=== PATIENT | male | born 1975 | race Caucasian/White ===

== ENCOUNTER → 2016-12-19 | Outpatient (CLI) | payer BC ==
[2016-12-19 13:45] LABS: CHOLESTEROL/HDL RATIO 6.5
== END | disposition home or self-care (01) ==
LOC: C.LABBC 10:24
PROVIDERS: ATTEND Family Medicine
DX: Z00.00 Encounter for general adult medical examination without abnormal findings (principal)

== ENCOUNTER → 2017-12-17 | Outpatient (CLI) | payer BC ==
[2017-12-17 14:18] LABS: ALBUMIN 4.2 gm/dl (3.4-5.0); ALT/SGPT 36 U/L (12-78); BLOOD UREA NITROGEN 13 mg/dl (7-18); CALCIUM 8.9 mg/dl (8.5-10.1); CARBON DIOXIDE 27 mmol/L (21-32); CHOLESTEROL 241 mg/dl (0-200); CREATININE 0.99 mg/dl (0.60-1.40); GLUCOSE 93 mg/dl (70-99); POTASSIUM 3.6 mmol/L (3.5-5.1); SODIUM 140 mmol/L (136-145)
[2017-12-17 14:21] LABS: ALKALINE PHOSPHATASE 73 U/L (45-117); AST/SGOT 12 U/L (15-37); LDL CHOLESTEROL CALCULATED 166 mg/dl
== END | disposition home or self-care (01) ==
LOC: C.LABBC 11:12
PROVIDERS: ATTEND Family Medicine Adult Medicine
DX: Z00.00 Encounter for general adult medical examination without abnormal findings (principal); E78.00 Pure hypercholesterolemia, unspecified; M10.9 Gout, unspecified

== ENCOUNTER 2019-04-15 08:24 | Observation (INO) ==
[2019-04-15 08:57] LABS: Basophils # (auto) 0.01 K/uL (0-0.2); Basophils % (auto) 0.1 %; Eosinophils # (auto) 0.09 K/uL (0-0.5); Eosinophils % (auto) 1.2 %; Hematocrit (blood only) 41.1 % (42-52); Hemoglobin 14.4 g/dL (14.0-18.0); Immature Granulocytes # (auto) 0.03 K/uL (0.00-0.02); Immature Granulocytes % (auto) 0.4 %; Lymphocytes # (auto) 2.83 K/uL (1.2-3.4); Lymphocytes % (auto) 37.1 %; Mean Corpuscular Volume 91.1 fL (80-100); Mean Platelet Volume 8.9 fL (7.4-10.4); Monocytes # (auto) 0.51 K/uL (0.11-0.59); Monocytes % (auto) 6.7 %; Neutrophils # (auto) 4.16 K/uL (1.4-6.5); Neutrophils % (auto) 54.5 %; Platelet Count 167 K/uL (130-400); RDW Coefficient of Variation 12.5 % (11.5-14.5); RDW Standard Deviation 41.4 fL (36.4-46.3); Red Blood Count 4.51 M/uL (4.7-6.1); White Blood Count 7.63 K/uL (4.8-10.8)
[2019-04-15] MEDS ORDERED: MIDAZOLAM HCL 1 MG/ML 2ML VIAL ONE ×3 (08:58→10:29)
[2019-04-15] MEDS ORDERED: fentaNYL citrate 100 MCG/2 ML VIAL ONE (08:58)
[2019-04-15] MEDS ORDERED: HEPARIN (PORCINE) 1000 UNIT/ML 10 ML (CATH LAB USE ONLY) ONE ×2 (08:58→10:34)
[2019-04-15] MEDS ORDERED: NiCARDipine HCL INJ 2.5 MG/ML 10 ML AMP ONE (08:58)
[2019-04-15] MEDS ORDERED: NITROGLYCERIN/D5W 100MCG/ML 20ML SYR ONE (08:59)
--- NOTE | 2019-04-15 09:09 | History & Physical Bridge Note ---
Date of Service April 15, 2019 History & Physical Bridge Note I have examined the patient, reviewed the History & Physical and in the interval since the performance of the History & Physical I have noted the following changes of clinical significance: no changes noted
--- NOTE | 2019-04-15 09:11 | Pre Anesthesia Assessment ---
Date of Service April 15, 2019 Pre Sedation Assessment Vital Signs Temp Pulse Resp BP Pulse Ox 04/15/19 08:35 36.6 C 104 H 20 143/88 H 98 Cardiovascular RRR, no murmur, no edema Respiratory normal respiratory effort, lungs clear to auscultation Pre-Sedation Airway Assessment Smoking Status: Never smoker ASA: ASA2 Procedure Planning Contraindications for Sedation: none Current Medications Reviewed: Yes Notes The planned sedation has been discussed with the patient. Informed Consent was obtained. I have identified the patient, determined the appropriateness of sedation and have assessed the patient immediately prior to the procedure. All medicine(s) and interventions are by my order.
[2019-04-15 09:15] LABS: BUN Creatinine Ratio 12.6 (10-20); Calcium 9.5 mg/dl (8.5-10.1); Creatinine Clr Calc Pharmacy 97.5 ml/min; Est GFR (African American) 95.1; Potassium 3.8 mmol/L (3.5-5.1)
--- NOTE | 2019-04-15 10:00 | Post Anesthesia Assessment ---
Date of Service April 15, 2019 Post Sedation Assessment Vital Signs Temp Pulse Resp BP Pulse Ox 04/15/19 08:35 36.6 C 104 H 20 143/88 H 98 Recovery Score Activity: Moves 4 extremities Respiration: Deep Breath/Cough Circulation: +/-20% PreAnes Value Consciousness: Fully Awake Oxygen Saturation: > 92% On Room Air Post Sedation Plan On clinical assessment, the patient appears to have tolerated the sedation without complications. Patient is recovering as anticipated. Patient will continue to be monitored by nursing and may be discharged when sedation discharge criteria are met per below protocol. Upon Completions of procedure and additional 15 minutes continue every 5 minute vital signs and the P.A.R. score; then discharge to a Phase I or Fast Track to Phase II per the following guidelines: * Discharge Patient to appropriate Phase II area if PAR is 8 or greater or return to pre- procedure baseline. The post - procedure orders will be as directed. * If PAR score is less than 8 or not return to pre-procedure baseline then patient will follow Phase I monitoring till PAR is reached for Phase II. The Phase I may be done in procedure room or may call to secure a Phase I area. * If naloxone or flumazenil are used for reversal, hold in Phase I for co ntinued monitoring from when last reversal dose was given for a minimum of 60 minutes or longer pending the nurse and/or physician discretion of patient condition before discharge to Phase II. Please call the Sedation Physician to re-evaluate and complete post-note for discharge to Phase II area. Do NOT discharge from procedure sedation or Phase 1 until post- sedation evaluation note is complete by procedure /sedation MD Sedation Discharge Instructions to be given to the patient at discharge to home.
--- NOTE | 2019-04-15 10:11 | Cardiac Catheterization ---
Cardiac Cath Procedure Full Procedure Date April 15, 2019 Pre-Procedure Diagnosis Pre-Procedure Diagnosis: Angina and Positive Stress Test AUC Score AUC Score: 7 Post-Procedure Diagnosis Post-Procedure Diagnosis: Severe CAD Procedure(s) Performed Procedure(s) Performed: Coronary Angiography and Left Heart Cath Grommet Worker Van Hurt DO Inside [employer] Sales(s) Theresa RTR Estimated Blood Loss Estimated Blood Loss: 5cc Medication(s) Medication(s): Fentanyl, Heparin, Lidocaine 1%, Nicardipine and Versed Summary of Findings 80% proximal LAD 90% proximal OM2 Hemodynamics Rest Ao:: 113/70/90 Final Ao: 102/63/81 LV: 107/-4/-1 Recommendations Recommendations: PCI without planned CABG Specimens Specimens: None Radiation Exposure (mGy) 843 Contrast (mls) 55 Fluids (cc crystalloids) Fluids (cc crystalloids): 305Nss Anesthesia Moderate sedation. start 0921. End 0945. 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 Cardiac Status Clinical evaluation leading to the procedure CAD Presenation: Positive Stress Test and Unstable angina Anginal Classification: CCS III Heart Failure: No Cardiogenic Shock within 24 Hours: No Cardiac Arrest within 24 Hours: No Imaging Studies Past 6 Months: Yes Stress Studies Past 6 Months: Yes Stress Echocardiogram: Yes - Positive and Risk/Extent of Ischemia (High) Coronary Anatomy Dominant: Right Left Main (% Stenosis): Normal LAD (% Stenosis): Proximal (80%), Mid (30%) and Distal (20%) Circumflex (% Stenosis): Ostial (10%), Proximal (20%) and Distal (30%) OM1 (% Stenosis): Ostial (small vessel with 40-50%) OM2 (% Stenosis): Proximal (90%), Mid (30%) and Distal (diffuse 10-20%) L PL1 (% Stenosis): Proximal (10%) L PL2 (% Stenosis): Proximal (10%) and Mid (10%) RCA (% Stenosis): Distal (40%) R PDA (% Stenosis): Proximal (20%) and Mid (20%) R PL1 (% Stenosis): Distal (10%) Ramus (% Stenosis): Mid (Vessel bifurcates approximately, 40% stenosis involving the lateral limb 40%) Diagnostic Physicians Name: Van O Kopinski, DO Status: Elective Closure Device Percutaneous Entry Location: Radial Recommendations: PCI without planned CABG Intraprocedure Events Significant Disection: No Perforation: No
--- NOTE | 2019-04-15 11:12 | Post Anesthesia Assessment ---
Date of Service April 15, 2019 Post Sedation Assessment Vital Signs Temp Pulse Resp BP Pulse Ox 04/15/19 08:35 36.6 C 104 H 20 143/88 H 98 Recovery Score Activity: Moves 4 extremities Respiration: Deep Breath/Cough Circulation: +/-20% PreAnes Value Consciousness: Fully Awake Oxygen Saturation: > 92% On Room Air Discharge Sedation Level of Care: Fast Track Phase II Post Sedation Plan On clinical assessment, the patient appears to have tolerated the sedation without complications. Patient is recovering as anticipated. Patient will continue to be monitored by nursing and may be discharged when sedation discharge criteria are met per below protocol. Upon Completions of procedure and additional 15 minutes continue every 5 minute vital signs and the P.A.R. score; then discharge to a Phase I or Fast Track to Phase II per the following guidelines: * Discharge Patient to appropriate Phase II area if PAR is 8 or greater or return to pre- procedure baseline. The post - procedure orders will be as directed. * If PAR score is less than 8 or not return to pre-procedure baseline then patient will follow Phase I monitoring till PAR is reached for Phase II. The Phase I may be done in procedure room or may call to secure a Phase I area. * If naloxone or flumazenil are used for reversal, hold in Phase I for continued monitoring from when last reversal dose was given for a minimum of 60 minutes or longer pending the nurse and/or physician discretion of patient condition before discharge to Phase II. Please call the Sedation Physician to re-evaluate and complete post-note for discharge to Phase II area. Do NOT discharge from procedure sedation or Phase 1 until post- sedation evaluation note is complete by procedure /sedation MD Sedation Discharge Instructions to be given to the patient at discharge to home.
[2019-04-15] MEDS ORDERED: CLOPIDOGREL BISULFATE 300 MG TAB ONE (11:15)
[2019-04-15] MEDS ORDERED: ONDANSETRON INJ 2 MG/ML 2 ML VIAL IV PRN (11:18)
[2019-04-15] MEDS ORDERED: ACETAMINOPHEN 325 MG TAB PO PRN (11:18)
--- NOTE | 2019-04-15 11:18 | Cardiac Catheterization ---
Cardiac Cath Procedure Full Procedure Date April 15, 2019 Pre-Procedure Diagnosis Pre-Procedure Diagnosis: Angina and Positive Stress Test AUC Score AUC Score: 7 Post-Procedure Diagnosis Post-Procedure Diagnosis: Severe CAD and Successful PCI Procedure(s) Performed Procedure(s) Performed: Coronary Angiography, Drug Eluting Stent and IVUS Office Mail Clerk Kashif Mendez MD Pickle Solution Maker(s) Theresa RTR Estimated Blood Loss Estimated Blood Loss: 20 Medication(s) Medication(s): Clopidogrel, Fentanyl, Heparin, Nicardipine, Nitroglycerin and Versed Summary of Findings Indication: Abnormal stress test, exertional angina Access: 6 Fr right radial artery Catheters: EBU 3.5 guide Findings: For full details of patient's coronary angiography please cath report dictated by Dr. Hurt. Briefly, patient found to have multi-vessel disease including a 80 to 90% proximal LAD and 90 % stenosis involving the proximal aspect of large second OM. Decision to proceed with PCI. -- PCI -- Antithrombotic therapy: Heparin, clopidogrel Procedure: Left main cannulated with EBU 3.5 guide BMW wire passed across lesion into distal LAD Proximal LAD lesion predilated with 2.0 compliant balloon IVUS used to assess extent of disease, calcification, length of stenosis. Found to have moderately calcified stenosis extending almost to ostium. Dilated lesion stented with 3.0 x 22 mm [place] Stent post-dilated with 3.0 noncompliant balloon IC vasodilators administered for spasm Post procedure IVUS showed well-expanded stent with no apparent edge complications. Post procedure CARRIE 3 flow, stent well expanded with minimal residual stenosis and no apparent cardiac complications. BMW wire directed into OM 2 Proximal OM 2 lesion dilated with 2.0 balloon Dilated OM 2 lesion stented with 2.75 x 22 mm [place] MARY Stent postdilated with stent balloon MARY revealed well-expanded stent just up to branch point with distal circumflex. Arterial Closure: TR band Summary: 1. Successful PCI of proximal LAD with single drug-eluting stent (3.0 x 22 [place]). 2. Successful PCI of proximal OM 2 with single drug-eluting stent (2.75 x 22 [place]). 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 Cardiac Status Clinical evaluation leading to the procedure CAD Presenation: Positive Stress Test Anginal Classification: CCS III Heart Failure: No Cardiogenic Shock within 24 Hours: No Cardiac Arrest within 24 Hours: No Imaging Studies Past 6 Months: Yes Stress Studies Past 6 Months: Yes Stress Echocardiogram: Yes - Positive Diagnostic Physicians Name: Kashif Mendez MD Status: Elective Closure Device Percutaneous Entry Location: Radial Closure Device: Radial Band Recommendations: PCI without planned CABG PCI Indication: + Stress Test Lesion Segment Name: Proximal LAD Culprit Artery: Yes Stenosis Prior to Rx (%): 80-90 Chronic Total Occlusion: No IVUS: Yes FFR: No Pre-Procedure CARRIE Flow: 3 Previously Treated Lesion: No Lesion Complexity: Non-High/Non-C Lesion Length (mm): 18 Thrombus Present: No Bifurcation Lesion: No Guidewire Across Lesion: Stenosis Post-Procedure (%): 0 Post-Procedure CARRIE Flow: 3 Devices(s) Deployed: Yes Yes Lesion #2 Segment Name: Proximal OM 2 Culprit Artery: No Stenosis Prior to Rx (%): 90 Chronic Total Occlusion: No IVUS: Yes FFR: No Pre-Procedure CARRIE Flow: 3 Previously Treated Lesion: No Lesion Complexity: Non-High/Non-C Lesion Length (mm): 18 Thrombus Present: No Bifurcation Lesion: Yes Guidewire Across Lesion: Yes Stenosis Post-Procedure (%): 0 Post-Procedure CARRIE Flow: 3 Intraprocedure Events Significant Disection: No Perforation: No
[2019-04-15] MEDS ORDERED: SODIUM CHLORIDE 0.9% 1000ML 1,000 ML IV SCH (11:30)
[2019-04-15] MEDS: ATORVASTATIN 40 MG TAB PO SCH (12:07)
[2019-04-15] MEDS: METOPROLOL SUCC 25MG EXT REL TAB PO SCH (12:08)
[2019-04-16 06:43] LABS: Basophils # (auto) 0.02 K/uL (0-0.2); Basophils % (auto) 0.2 %; Eosinophils # (auto) 0.12 K/uL (0-0.5); Eosinophils % (auto) 1.4 %; Hematocrit (blood only) 39.7 % (42-52); Immature Granulocytes # (auto) 0.04 K/uL (0.00-0.02); Immature Granulocytes % (auto) 0.5 %; Lymphocytes % (auto) 31.9 %; Mean Corpuscular Hgb Conc 35.3 g/dL (32-36); Mean Corpuscular Volume 91.7 fL (80-100); Mean Platelet Volume 8.7 fL (7.4-10.4); Monocytes # (auto) 0.63 K/uL (0.11-0.59); Monocytes % (auto) 7.2 %; Neutrophils # (auto) 5.18 K/uL (1.4-6.5); Neutrophils % (auto) 58.8 %; Platelet Count 168 K/uL (130-400); RDW Coefficient of Variation 12.4 % (11.5-14.5); RDW Standard Deviation 42.1 fL (36.4-46.3); Red Blood Count 4.33 M/uL (4.7-6.1); White Blood Count 8.79 K/uL (4.8-10.8)
[2019-04-16] MEDS ORDERED: ASPIRIN 81 MG ECTAB PO SCH (09:00)
[2019-04-16] MEDS ORDERED: CLOPIDOGREL BISULFATE 75 MG TAB PO SCH (09:00)
[2019-04-16] MEDS: METOPROLOL SUCC 25MG EXT REL TAB PO SCH (09:05)
[2019-04-16] MEDS: ATORVASTATIN 40 MG TAB PO SCH (09:05)
--- NOTE | 2019-04-16 11:00 | Cardiology Progress Note ---
Date of Service April 16, 2019 Assessment & Plan (1) CAD (coronary artery disease): Abnormal stress test, leading to diagnostic cardiac cath yesterday, 04/15. receiving 2 MARY within prox LAD x1 and prox OM2x1 tolerated procedure without incident No recurrent chest pain (2) S/P coronary artery stent placement: Summary: 1. Successful PCI of proximal LAD with single drug-eluting stent (3.0 x 22 [place]). 2. Successful PCI of proximal OM 2 with single drug-eluting stent (2.75 x 22 [place]). Recommendations: Continue dual-antiplatelet therapy for at least 6 months Continue statin, and ASCVD risk factor modification cardiac Rehab ASA, Plavix, atorvastatin and metoprolol on discharge (3) Dyslipidemia, goal LDL below 70: Start atorvastatin (4) Hypertension: Start Metoprolol Subjective Patient without complaints this. AM. No chest pain overnight or this AM while ambulating in [place]. Denies SOB. Cath site without pain, erythema, drainage. No dizziness or palpitations Review of Systems Review of Systems: All systems reviewed & are unremarkable except as noted in HPI & below Physical Exam Physical Exam: General: NAD. A+Ox3. HEENT: Normocephalic. Atraumatic. PERRL. EOMI. Conjunctiva and sclera clear. NECK: No carotid bruits. No JVD. Carotid upstrokes are brisk. Heart: RRR. S1 and S2 noted without murmur, rubs, gallops. PMI non displaced. Lungs: Clear to auscultation and percussion. No wheezes, rhonchi, rales. Abdomen: Normal bowel sounds. Soft. Nontender. No masses or organomegaly. No abdominal bruits. Extremities: No edema. No clubbing or cyanosis. Pulses: radi al=2/4, posterior tibial=2/4, dorsalis pedis = 2/4. NEURO: No focal deficits. PSYCH: Normal. Results & Data Vital Signs (Past 12 Hours) Vital Signs Temp Pulse Pulse Pulse Resp BP Pulse Ox 04/16/19 08:00 76 04/16/19 07:21 36.6 C 72 16 123/85 98 04/16/19 03:33 36.7 C 70 20 136/83 97 04/15/19 23:43 36.8 C 78 20 134/75 96 Laboratory Results 04/16/19 04/15/1904/15/19 Range/Units 06:18 10:47 10:30 WBC 8.79 (4.8-10.8) K/uL RBC 4.33 L (4.7-6.1) M/uL Hgb 14.0 (14.0-18.0) g/dL Hct 39.7 L (42-52) % MCV 91.7 (80-100) fL MCH 32.3 (25-34) pg MCHC 35.3 (32-36) g/dL RDW Std Deviation 42.1 (36.4-46.3) fL RDW Coeff of Terrance 12.4 (11.5-14.5) % Plt Count 168 (130-400) K/uL MPV 8.7 (7.4-10.4) fL Immature Gran % (Auto) 0.5 % Neut % (Auto) 58.8 % Lymph % (Auto) 31.9 % [place] % (Auto) 7.2 % Eos % (Auto) 1.4 % Baso % (Auto) 0.2 % Immature Gran # (Auto) 0.04 H (0.00-0.02) K/uL Neut # (Auto) 5.18 (1.4-6.5) K/uL Lymph # (Auto) 2.80 (1.2-3.4) K/uL [place] # (Auto) 0.63 H (0.11-0.59) K/uL Eos # (Auto) 0.12 (0-0.5) K/uL Baso # (Auto) 0.02 (0-0.2) K/uL Activ Coag Time Ka[place] 241 H 208 H (94-140) SECONDS Diagnostic Findings Cardiac Cath report reviewed: Summary: 1. Successful PCI of proximal LAD with single drug-eluting stent (3.0 x 22 [place]). 2. Successful PCI of proximal OM 2 with single drug-eluting stent (2.75 x 22 [place]). (1) CAD (coronary artery disease) Coronary Disease-Associated Artery/Lesion type: [place] artery [place] vs. transplanted heart: [place] heart Associated angina: with other forms of angina Qualified Code(s): I25.118 - Atherosclerotic heart disease of [place] coronary artery with other forms of angina pectoris (2) Hypertension Hypertension type: essential hypertension Qualified Code(s): I10 - Essential (primary) hypertension
--- NOTE | 2019-04-16 11:25 | Discharge Summary ---
Date of Service April 16, 2019 Admission HPI Per Admitting Provider Patient admitted with angina, positive stress test. Underwent diagnostic cardiac cath, demonstrating multivessel disease. Underwent MARY placement, prox LAD x2, prox OM2. Principal Diagnosis CAD s/p coronary artery stent placement Discharge Exam General: NAD. A+Ox3. HEENT: Normocephalic. Atraumatic. PERRL. EOMI. Conjunctiva and sclera clear. NECK: No carotid bruits. No JVD. Carotid upstrokes are brisk. Heart: RRR. S1 and S2 noted without murmur, rubs, gallops. PMI non displaced. Lungs: Clear to auscultation and percussion. No wheezes, rhonchi, rales. Abdomen: Normal bowel sounds. Soft. Nontender. No masses or organomegaly. No abdominal bruits. Extremities: No edema. No clubbing or cyanosis. Pulses: radial=2/4, posterior tibial=2/4, dorsalis pedis = 2/4. NEURO: No focal deficits. PSYCH: Normal. Discharge Data Allergies Allergy/AdvReac Type Severity Reaction Status Date / Time No Known Allergies Allergy Verified 12/09/02 19:37 Procedures Performed Operation Date: 04/15/19 09:30 Actual Procedures p Cath, Left with Cors and Vent - Van Hurt, DO s IVUS Coronary each ADDL Vessel - Segun Mendez MD s IVUS Coronary Single Vessel - Segun Mendez MD s Drug Eluting Stent each ADDTL Vessel - Segun Mendez MD s Drug Eluting Stent SGl Vessel - Segun Mendez MD Ordered Studies 04/15/19 06:43 CL Cath Imgs for PACS use only Routine 04/15/19 12:46 CL IVUS Coronary Single Vessel Routine Hospital Course (1) CAD (coronary artery disease): Abnormal stress test, leading to diagnostic cardiac cath yesterday, 04/15. receiving 2 MARY within prox LAD x1 and prox OM2x1 tolerated procedure without incident No recurrent chest pain (2) S/P coronary artery stent placement: Summary: 1. Successful PCI of proximal LAD with single drug-eluting stent (3.0 x 22 [place]). 2. Successful PCI of proximal OM 2 with single drug-eluting stent (2.75 x 22 [place]). Recommendations: Continue dual-antiplatelet therapy for at least 6 months Continue statin, and ASCVD risk factor modification cardiac Rehab ASA, Plavix, atorvastatin and metoprolol on discharge (3) Dyslipidemia, goal LDL below 70: Start atorvastatin (4) Hypertension: Start Metoprolol Total Time Total Time Spent Total Time Spent (In Minutes): 45 Total Time Includes: Examination of the Patient, Discharge Planning and Medication Reconciliation Discharge Plan Discharge Items Patient Disposition: Home - Self-Care Reason For Visit: Abnormal Stress Test Discharge Diagnosis: Coronary artery disease s/p MARY x2 Condition: Good Discharge Goals: Improve disease control, Learn about illness and Prevent disease Activity: Per 'Additional Instructions' section Lifting: No more than 10 pounds Lifting Comment: For 1 week Bathing: No limitations Sexual Activity: When tolerated Exercise/Sports: Gradually increase as tolerated Driving/Machine Use: No limitations Non-emergency contact: Coat Operator Call non-emergency contact if: you have any medication questions, your symptoms worsen and your pain is concerning for you Follow-up/Referrals: Luda Dave MD [Primary Care Provider] - Diet: Heart Healthy Addtl Provider Instructions: Keep follow up as scheduled with Dr. Lawrence on 05/12/19 Prescriptions: New atorvastatin 40 mg Tablet 80 mg PO QAM Qty: 30 RF: 3 clopidogrel 75 mg Tablet 75 mg PO QAM Qty: 30 RF: 0 aspirin [Ecotrin Low Strength] 81 mg Tablet,Delayed Release (Dr/Ec) 81 mg PO QAM Qty: 30 RF: 0 metoprolol succinate 25 mg Tablet Extended Release 24 Hr 25 mg PO QAM Qty: 30 RF: 3 Discontinued aspirin 81 mg Tablet,Chewable 81 mg PO DAILY RF: 0 Stand-Alone Forms: [facility] Discharge Orders: Discharge Order (Routine); Ordered 04/16/19 Ordered By: Vida Ratliff Admission Data Admit Date/Time: 04/15/19 09:58 Attending Provider: Van Hurt Admit Provider: Van Hurt Primary Care Provider: Luda Dave Service: Telemetry Other Interventions: Discharge Summary Assessment (RN) Last Done: 04/16/19 11:18 Pending Studies at Discharge: No DC Date/Time DO NOT enter until pt leaves facility: 04/16/19 12:05 Supervising Physician Co-Signing Physician Notes Patient clinically stable after procedures as noted above agree with assessment and plan discharge to home today. Prescriptions provided for patient via outpatient EMR
== END 2019-04-16 12:05 | disposition home or self-care (01) ==
LOC: CC 08:24 → 2S 08:24